=== PATIENT | male | born 1975 | race African-American/Black ===

== ENCOUNTER → 2019-12-31 | Emergency (ER) | payer MEDICAID, OTHER ==
[~2019-12-31] VITALS: Ht 170.2 cm; Wt 117.9 kg
[2019-12-31 19:49] VITALS: BP 156/106
== END | disposition home or self-care (01) ==
LOC: ER 18:09
DX: J01.00 Acute maxillary sinusitis, unspecified (principal); J45.909 Unspecified asthma, uncomplicated; Z20.828 Contact with and (suspected) exposure to other viral communicable diseases; F17.210 Nicotine dependence, cigarettes, uncomplicated
CPT/HCPCS: 71046; 87070; 87804; 87880; 99284; U0003

== ENCOUNTER 2024-07-16 14:48 | Emergency (ER) | payer MEDICAID ==
[~2024-07-16] VITALS: Ht 170.2 cm; Wt 113.5 kg
--- NOTE | 2024-07-16 15:22 | ED.PDOC ---
SOB-HPI HPI Comments 48 y.o male with PMHx of asthma, presents to the ED for a chief complaint of a productive cough associated with chills that started 2 days ago. Patient reports last night symptoms worsened, describes the inability to take a deep breath and also mentions non related symptoms that include a headache and dysuria with slow stream UA output. Patient denies any history of prostate issues, chest pain, nausea, vomiting, hematuria, fever. Patient was hypertensive and tachycardic at arrival. Time Seen by MD: 15:13 Reviewed notes: Nurses Notes, Medications, Allergies Information Source: Patient Mode of Arrival: Ambulatory Severity: Moderate Timing: Days (2) Duration: Since onset Context: At Rest PE Risk Factors: None History of: Asthma Prehospital treatment: None Modifying Factors: Nothing Associated Signs and Symptoms: Cough If cough with SOB: Productive Past Medical History PAST MEDICAL HISTORY: Asthma Surgical History: Denies all surgeries Family History Family History: Reviewed,noncontributory to illness Social History Smoker: Cigarettes Alcohol: Occasionally Drugs: Denies Drug Use Lives In: Home Constitutional: reports: chills; denies: diaphoresis, fatigue, fever, malaise, sweats, weakness, others EENTM: denies: blurred vision, double vision, ear bleeding, ear discharge, ear drainage, ear pain, ear ringing, eye pain, eye redness, hearing loss, mouth pain, mouth swelling, nasal discharge, nose bleeding, nose congestion, nose pain, photophobia, tearing, throat pain, throat swelling, voice changes, others Respiratory: reports: cough, shortness of breath; denies: hemoptysis, orthopnea, SOB at rest, SOB with excertion, stridor, wheezing, others Cardiovascular: denies: chest pain, dizzy spells, diaphoresis, Dyspnea on exertion, edema, irregular heart beat, left arm pain, lightheadedness, palpitations, PND, syncope, others Gastrointestinal: denies: abdomen distended, abdominal pain, blood streaked bowels, constipated, diarrhea, dysphagia, difficulty swallowing, hematemesis, melena, nausea, poor appetite, poor fluid intake, rectal bleeding, rectal pain, vomiting, others Genitourinary: reports: dysuria; denies: burning, flank pain, frequency, hematuria, incontinence, penile discharge, penile sore, pain, testicle pain, testicle swelling, urgency, others Neurological: reports: headache; denies: dizziness, fainting, left sided numbness, left sided weakness, numbness, paresthesia, pre-existing deficit, right sided numbness, right sided weakness, seizure, speech problems, tingling, tremors, weakness, others Musculoskeletal: denies: back pain, gout, joint pain, joint swelling, muscle pain, muscle stiffness, neck pain, others Integumetry: denies: bruises, change in color, change in hair/nails, dryness, laceration, lesions, lumps, rash, wounds, others Allergic/Immunocompromised: denies: Difficulty Healing, Frequent Infections, Hives, Itching, others Hematologic/Lymphatic: denies: anemia, blood clots, easy bleeding, easy bruising, swollen glands, others Endocrine: denies: excessive hunger, excessive sweating, excessive thirst, excessive urination, flushing, intolerance to cold, intolerance to heat, unexplained weight gain, unexplained weight loss, others Psychiatric: denies: anxiety, bipolar disorder, depression, hopeless, panic disorder, schizophrenia, sleepless, suicidal, others All Other Systems: Reviewed and Negative Physical Exam General Appearance: Moderate Distress (Patient appears to be in moderate distress at time of evaluation.), Obese HEENT: Normal ENT Inspection, Pharynx Normal, TMs Normal Neck: Full Range of Motion, Non-Tender, Normal, Normal Inspection Respiratory: Chest Non-Tender, No Accessory Muscle Use, No Respiratory Distress, Normal Breath Sounds, Other (Patchy rhonchi appreciated right middle and right upper lobe.) Cardiovascular: No Edema, No JVD, No Murmur, No Gallop, Normal Peripheral Pulses, Regular Rate/Rhythm Breast Exam: Deferred Gastrointestinal: No Organomegaly, Non Tender, No Pulsatile Mass, Normal Bowel Sounds, Soft Genitalia: Deferred Pelvic: Deferred Rectal: Deferred Extremities: No calf tenderness, Normal capillary refill, Normal inspection, Normal range of motion, Non-tender, No pedal edema Musculoskeletal : Apperance: Normal Neurologic: Alert, No Motor Deficits, Normal Affect, Normal Mood, No Sensory Deficits Cerebellar Function: Normal Reflexes: Normal Skin: Dry, Normal Color, Warm Lymphatic: No Adenopathy Was a procedure done? Was a procedure done?: No Differential Dx Differential Diagnosis: Asthma, Bronchitis, Pneumonia, URI, Other (UTI, BPH) X-Ray, Labs, Meds, VS Vital Signs Date Time Temp Pulse Resp B/P (MAP) Pulse Ox O2 Delivery O2 Flow Rate FiO2 07/16/24 18:58 98.8 07/16/24 17:51 99.6 07/16/24 17:38 99.6 106 18 149/71 (97) 95 99.6 07/16/24 17:38 106 18 95 Room Air 07/16/24 16:21 20 94 Room Air* 0 21 07/16/24 16:21 99.9 112 20 156/68 (97) 94 07/16/24 15:38 18 97 Room Air* 0 21 Lab Test 07/16/24 17:56 07/16/24 17:55 Range/Units Influenza Type A Antigen Negative Negative Influenza Type B Antigen Negative Negative SARS-CoV-2 Antigen (Rapid) Negative NEGATIVE Urine Color Yellow Yellow Urine Clarity Clear Clear Urine pH 5.5 5.0-9.0 Urine Specific [place] 1.026 1.001-1.035 Urine Protein Trace H Negative Urine Ketones Negative Negative Urine Blood Trace H Negative /uL Urine Nitrite Negative Negative Urine Bilirubin Negative Negative Urine Urobilinogen Normal Negative mg/dL Urine Leukocyte Esterase Negative Negative /uL Urine RBC 1 0 - 3 /hpf Urine Microscopic WBC 1 0-3 /HPF Urine Squamous Epithelial Cells Few <5 /hpf Urine Bacteria None seen None Seen /hpf Urine Mucus Few None Seen Urine Glucose Normal Normal mg/dL Current Medications Medications (Trade) Dose Ordered Sig/Pedro Route Start Time Stop Time Status Last Admin Albuterol (Ventolin Medneb) 5 mg ONCE ONCE NEB 07/16/24 15:30 07/16/24 15:31 DC 07/16/24 15:38 Ipratropium [place] (Atrovent Medneb) 0.5 mg ONCE ONCE NEB 07/16/24 15:30 07/16/24 15:31 DC 07/16/24 15:38 Acetaminophen (Tylenol Tablet) 1,000 mg ONCE ONCE PO 07/16/24 15:30 07/16/24 15:31 DC 07/16/24 17:51 Dexamethasone Sodium Phosphate (Decadron Injection) 10 mg ONCE ONCE IM 07/16/24 17:45 07/16/24 17:46 DC 07/16/24 18:[address] [address] Ph: [phone] DIAGNOSTIC IMAGING Diagnostic Imaging Report : [id number] Signed PATIENT: INÉS PERRIN ACCT: [id number] UNIT: [id number] : 1975 LOC: ER ROOM / BED: / AGE / SEX: 48 / M ADM STATUS: REG ER SERVICE 1518 ORDERING PHYSICIAN: JAMES ACOSTA PAC PROCEDURE(s): CXRP - CHEST PORTABLE REASON: Shortness of breath ORDER NUMBER(s): [id number], ACCESSION NUMBER(s): [id number] CHEST RADIOGRAPH Indication: Shortness of breath Technique: Single frontal view of the chest was obtained COMPARISON: None FINDINGS: Lines and Tubes: None Lungs: Mild increased interstitial prominence. Pleura: No effusion. No pneumothorax. Cardiomediastinal contours: Unremarkable Bones: Unremarkable IMPRESSION: Possible viral pneumonia ATED BY: BINH DE LA O MD DICTATED DATE/TIME: 07/16/24 160 SIGNED BY: BINH DE LA O MD SIGNED DATE/TIME: 07/16/24 160 CC: X-Ray, Labs, Meds, VS Comment All studies performed in the ED were evaluated by me personally. Swabs were unremarkable for any influenza or COVID and imaging studies revealed a developing pneumonia that may be viral. Patient will be sent home with treatment for a bacterial pneumonia as well as supportive medication. Advised patient to follow up with his primary care provider for conversation is related to urine outlet issues that may be related to prostate concerns. Time of 1ST Reevaluation: 19:22 Reevaluation 1ST: Improved Consultation: PCP Patient Education/Counseling: Diagnosis, Treatment, Prognosis Family Education/Counseling: Diagnosis, Treatment, No Family Present Departure 1 Departure Time of Disposition: 19:22 Impression: Primary Impression: Pneumonia Additional Impression: Urinary anomaly Disposition: HOME / SELF CARE / HOMELESS Condition: Stable Additional Instructions: Advised patient utilize antibiotics as directed and additionally, patient should follow up with primary care provider for discussions related to urinary concerns as they may be related to prostate issues. e-Prescriptions Ibuprofen Micronized (Ibuprofen) 800 Mg Tab 800 MG PO Q8HP PRN, #20 TAB Prov: JAMES ACOSTA PAC 07/16/24 Acetaminophen (Acetaminophen) 500 Mg Tab 500 MG PO Q4HP PRN, #30 TAB Prov: JAMES ACOSTA PAC 07/16/24 Benzonatate (Benzonatate) 100 Mg Cap 1 CAP PO TID, #20 CAP Prov: JAMES ACOSTA PAC 07/16/24 Azithromycin (ZITHROMAX TABLET) 250 Mg Tb 250 MG PO DAILY for 4 Days, #4 TAB Patient to take 1st dose on 07/17/2024 Prov: JAMES ACOSTA PAC 07/16/24 Discharged With: Self, Friend Critical Care Note Critical Care Time?: No Stability Stability form required: No I personally scribed for JAMES ACOSTA PAC ([email or web address]) on 07/16/24 at 15:22. Electronically submitted by Maureen Simmons ([facility]). I personally scribed for JAMES ACOSTA PAC ([email or web address]) on 07/16/24 at 18:53. Electronically submitted by Maureen Simmons ([facility]). JAMES ACOSTA PAC Jul 16, 2024 15:22
[2024-07-16] MEDS ORDERED: DexAMETHasone SOD PHOS 10MG/1ML VIAL INJ IM ONE (15:30)
[2024-07-16] MEDS: IPRATROPIUM BROM 0.5 MG/2.5ML INH SOL NEB ONE (15:38)
[2024-07-16] MEDS: ALBUTEROL SULF 2.5 MG/0.5ML(0.5%) NEB SOLN NEB ONE (15:38)
--- NOTE | 2024-07-16 16:09 | DVH ---
CHEST RADIOGRAPH Indication: Shortness of breath Technique: Single frontal view of the chest was obtained COMPARISON: None FINDINGS: Lines and Tubes: None Lungs: Mild increased interstitial prominence. Pleura: No effusion. No pneumothorax. Cardiomediastinal contours: Unremarkable Bones: Unremarkable IMPRESSION: Possible viral pneumonia
[2024-07-16] MEDS: ACETAMINOPHEN 325 MG TAB PO ONE (17:51)
[2024-07-16 18:11] LABS: Urine Bacteria None Seen /hpf (None Seen)
[2024-07-16 18:21] LABS: Urine Blood TRACE /uL (Negative); Urine Clarity Clear (Clear); Urine Color Yellow (Yellow); Urine Mucus FEW (None Seen); Urine Protein, UAD TRACE (Negative); Urine Specific Gravity 1.026 (1.001-1.035); Urine Squamous Epithelial Cell FEW /hpf (<5); Urine Urobilinogen Normal (Negative); Urine WBC 1 /HPF (0-3); Urine pH 5.5 (5.0-9.0)
[2024-07-16] MEDS: DexAMETHasone SOD PHOS 10MG/1ML VIAL INJ IM ONE (18:58)
[2024-07-16 19:00] LABS: COVID19 ANTIGEN SOFIA FIA NEGATIVE (NEGATIVE); Rapid Influenza A Negative (Negative); Rapid Influenza B Negative (Negative)
[2024-07-16] MEDS ORDERED: IBUP-1455 PO (19:24)
[2024-07-16] MEDS ORDERED: AZIT-185 PO (19:24)
[2024-07-16] MEDS ORDERED: ACET500T58 PO (19:24)
[2024-07-16] MEDS ORDERED: BENZ100C97 PO (19:24)
[2024-07-16 20:21] VITALS: BP 122/65; PULSE 81; RESP 19; TEMP 98.5; O2SAT 97
== END 2024-07-16 20:31 | disposition home or self-care (01) ==
LOC: ER 14:48
DX: Q64.8 Other specified congenital malformations of urinary system (principal); J18.9 Pneumonia, unspecified organism; J45.909 Unspecified asthma, uncomplicated; Z20.822 Contact with and (suspected) exposure to COVID-19
CPT/HCPCS: 36415; 71045; 81001; 87426; 87804; 94640; 96372; 99285; J1100